=== PATIENT | male | born 1940 | race Caucasian/White ===

== ENCOUNTER 2018-12-07 00:34 | Day surgery (SDC) | payer MEDICARE, OTHER ==
[2018-12-04 10:45] LABS: PLATELET COUNT, AUTOMATED 244 K/uL (150-450)
--- NOTE | 2018-12-06 19:47 | HISTORY AND PHYSICAL ---
DATE OF ADMISSION: December 07, 2018 CHIEF COMPLAINT Elevated PSA with chronic urinary retention and bilateral hydronephrosis. HISTORY OF PRESENT ILLNESS Patient is a 78-year-old male who was referred to the Urology Clinic by Dr. Coronel of the [facility] in [place] in August for chronic urinary retention, requiring CIC. 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 He apparently has been on CIC for several months prior to him being evaluated here. The reason that prompted his urologic referral was he was noted to have bilateral hydronephrosis on a CT chest angiogram, but the patient was without significant symptoms. When seen in the Urology Clinic, his postvoid was greater than 500 mL. He had a creatinine of 1.3 and an elevated PSA of 4.8. The patient was continued on CIC. He had a followup renal ultrasound which continued to show some hydronephrosis. A cystoscopy was performed, which showed a 2+ trabeculated bladder and a large intravesical lobe extension on the prostate. Repeat ultrasound showed continued hydronephrosis with an enlarged prostate of approximately 90 cc volume. A Eason catheter was placed and a renal scan performed, which showed bilateral patulous systems with delayed drainage, consistent with delayed filling, not really with an obstructive system. A repeat PSA was performed and was up to 5.2. Given these findings, he is now being brought to the operating room for planned anesthetic cystoscopy with bilateral retrograde pyelograms, possible ureteroscopy with stent placement, as well as transrectal ultrasound biopsy of the prostate. PAST MEDICAL HISTORY 1. Hypertension. 2. Hypercholesterolemia. 3. Gastroesophageal reflux disease. 4. History of right subdural hematoma in July 2017. 5. Dementia. 6. COPD. 7. BPH with bilateral hydronephrosis as per HPI. 8. Secondary polycythemia. PAST SURGICAL HISTORY Right rotator cuff. CURRENT MEDICATIONS 1. Flomax. 2. Amlodipine. 3. Melatonin. ALLERGIES No known drug allergies. SOCIAL HISTORY Patient lives in [place], [place]. His primary caretakers are his cdwkbyy-no-owm and sister, Abner and Ping Mann, and his DPOA is his son, José Miguel Leal. He does report long tobacco use. REVIEW OF SYSTEMS Patient denies gross hematuria, flank pain, nausea, vomiting, fever, chills, bleeding disorder, or liver disease. PHYSICAL EXAMINATION GENERAL: Patient is a well-developed, elderly white male in no acute distress. HEENT: Normocephalic, atraumatic. CHEST: Clear to auscultation bilaterally. CARDIOVASCULAR: Regular rate and rhythm. ABDOMEN: Soft, nontender. No masses are palpated. BACK: Normal-appearing spine without CVAT. GENITOURINARY: Deferred to the OR. NEUROLOGIC: Nonfocal. EXTREMITIES: Without clubbing, cyanosis, or edema. IMPRESSION A 78-year-old white male with chronic urinary retention with bilateral hydronephrosis and enlarged prostate with elevated PSA. PLAN Will perform anesthetic cystoscopy, bilateral retrograde pyelograms, possible ureteroscopy and/or stent placement as indicated, followed by transrectal ultrasound and biopsy of the prostate. [facility]
[~2018-12-07] VITALS: Ht 170.2 cm; Wt 58.1 kg
[2018-12-07] VITALS (11 sets, daily range): BP systolic 100–131; BP diastolic 64–80
[~2018-12-07 00:34] MED LIST: ALBU8.5H IH; ASPI-1471 PO; ATOR40TA24 PO; BUDE10.2 INH; FINA5TAB67 PO; GUAI600T57 PO; IBUP800T37 PO; LOR5 PO; MELA5TAB3 PO; OXYC-865 PO; RAN150 PO; RANI-54 PO; SULF-198 PO; TAMS0.4C25 PO; TIOT4MIS5 INH
[2018-12-07] MEDS ORDERED: MIDAZOLAM 2 MG/2 ML VIAL IVP PRN (06:45)
[2018-12-07] MEDS ORDERED: NORMOSOL R SOLN(*) 1000 ML BAG 1,000 ML IV PRN (06:45)
[2018-12-07] MEDS ORDERED: FAMOTIDINE 20 MG TAB PO ONE (06:45)
[2018-12-07] MEDS ORDERED: LIDOCAINE/SOD BICARB 8.4% SYR ID ONE (06:45)
[2018-12-07] MEDS ORDERED: LEVOFLOXACIN/D5W*500 MG/100 ML 100 ML IVPB ONE (06:45)
[2018-12-07] MEDS ORDERED: IOPAMIDOL 20 ML VIAL IT ONE ×2 (07:18→07:41)
[2018-12-07] MEDS ORDERED: fentaNYL CITR 100 MCG/2 ML AMP ONE (07:23)
[2018-12-07] MEDS ORDERED: IOPAMIDOL 76% 50 ML INFUS BTL 0 ML ONE (07:25)
[2018-12-07] MEDS ORDERED: ONDANSETRON 4 MG/2 ML VIAL ONE (07:26)
[2018-12-07] MEDS ORDERED: DEXAMETHASONE SOD 4 MG/ML VIAL ONE (07:26)
[2018-12-07] MEDS ORDERED: LIDOCAINE MPF 1% 5 ML VIAL ONE (07:26)
[2018-12-07] MEDS ORDERED: PROPOFOL EMUL(*) 10MG/ML 20 ML 20 ML ONE (07:26)
[2018-12-07] MEDS ORDERED: LIDOCAINE 2% JELLY 5 ML TUBE ONE (07:34)
[2018-12-07] MEDS ORDERED: IOPAMIDOL-200 50 ML VIAL IS ONE ×2 (07:42→09:07)
[2018-12-07] MEDS ORDERED: GENTAMICIN 80 MG/2 ML VIAL ONE (07:59)
[2018-12-07] MEDS ORDERED: ePHEDrine 25 MG/5 ML DISP.SYR IVP ONE (08:12)
[2018-12-07] MEDS ORDERED: FUROSEMIDE 40 MG/4 ML VIAL ONE (08:14)
[2018-12-07] MEDS ORDERED: IOTHALAMATE MEGLU 172MG/ML BTL 250 ML IVPB ONE ×2 (08:19→08:20)
[2018-12-07] MEDS ORDERED: NS(*) 0.9% 100 ML BAG 100 ML ONE (08:26)
[2018-12-07] MEDS ORDERED: INDIGOTINDISULF SOD 40 MG/5 ML ONE (08:34)
[2018-12-07] MEDS ORDERED: LEVO-85 PO (09:38)
[2018-12-07] MEDS ORDERED: DOCU-416 PO (09:40)
[2018-12-07] MEDS ORDERED: NEOM1PAC11 TP (09:42)
--- NOTE | 2018-12-07 10:49 | RADIOLOGY IMAGING REPORT ---
FACILITY: [facility] PATIENT NAME: Ra Leal : 1940 MR: [id number] V: [id number] EXAM DATE: ORDERING PHYSICIAN: ARSH SNOWDEN TECHNOLOGIST: Location: [facility] Patient: Ra Leal : 1940 Visit/Account:[id number] Date of Sevice: 12/07/2018 Exam type: PROSTATE BIOPSY History: Elevated PSA Comparison: None. Findings: The prostate biopsy was performed by Dr. Snowden. Sonographic assistance was provided. Please see Dr Francisco Snowden's note for complete details IMPRESSION: 1. As above Report Dictated By: Candice Pearson MD at 12/07/2018 10:39 AM Report E-Signed By: Candice Pearson MD at 12/07/2018 10:39 AM WSN:[email or web address]
--- NOTE | 2018-12-07 11:00 | RADIOLOGY IMAGING REPORT ---
FACILITY: [facility] PATIENT NAME: Ra Leal : 1940 MR: [id number] V: [id number] EXAM DATE: ORDERING PHYSICIAN: ARSH SNOWDEN TECHNOLOGIST: Location: [facility] Patient: Ra Leal : 1940 Visit/Account:[id number] Date of Sevice: 12/07/2018 Exam type: RETROGRADE PYELOGRAM History: STONES Comparison: Renal ultrasound October 04, 2018. Findings: The fluoroscopy time was 0.43 minutes. The fluoroscopy dose was 21.34 mGray. 38 cm spot views over the abdomen and pelvis were submitted. Initial images demonstrate a cystogram with marked trabeculation of the bladder. There is severe ves icoureteral reflux on the left with severe left hydronephrosis and left hydroureter. The left ureter appears extremely ectatic with a mild narrowing at the left UPJ. There is grade 1 vesicoureteral re flux on the right Subsequent images demonstrate cystoscope in place with contrast injected into the r ight ureter. There is a mild right hydronephrosis and moderate right hydroureter. The right ureter appears extremely ectatic. IMPRESSION: 1. Severely trabeculated bladder Severe grade 5 vesicoureteral reflux on the left with a severe left hydronephrosis and left hydrouret er. There is also suggestion of mild narrowing at the left UPJ There is grade 1 vesicoureteral reflux on the right Mild right hydronephrosis and moderate right hydroureter following injection of contrast into the rig ht ureter Report Dictated By: Candice Pearson MD at 12/07/2018 10:41 AM Report E-Signed By: Candice Pearson MD at 12/07/2018 10:50 AM WSN:[email or web address]
--- NOTE | 2018-12-07 16:22 | OPERATIVE REPORT 1 ---
EVENT DATE: December 07, 2018 SURGEON: Shar Griffith MD ANESTHESIOLOGIST: Gustavo Peralta MD ANESTHESIA: General anesthetic. PREOPERATIVE DIAGNOSES 1. Chronic urinary retention. 2. Bilateral hydronephrosis. 3. Elevated PSA. POSTOPERATIVE DIAGNOSES 1. Chronic urinary retention. 2. Bilateral hydronephrosis. 3. Elevated PSA. PROCEDURES PERFORMED 1. Bladder irrigation with double antibiotic solution. 2. Static cystogram. 3. Rigid and flexible cystoscopy. 4. Right retrograde pyelogram. 5. Transrectal ultrasound of prostate. 6. Prostate needle biopsy transrectally times 13, sent in 12 containers. 7. Ultrasound guidance of prostate needle biopsy. ESTIMATED BLOOD LOSS 5 mL. INTRAVENOUS FLUIDS Crystalloids. DRAINS 16-Malawian Eason catheter. PATHOLOGY 13 biopsy cores sent in 12 containers, measured right, left, mid, base, apex, and mediolateral. FINDINGS 1. 3+ trabeculated bladder. 2. Extensive left intravesical prostatic protrusion. 3. Left vesicoureteral reflux. 4. Approximately 85 cc volume prostate. 5. Bilateral dilated upper tracts with no evidence of obstruction. COMPLICATIONS None. CONDITION Patient taken to recovery room awake, in stable condition. STATEMENT OF MEDICAL NECESSITY Patient is a 78-year-old male referred to the Urology Clinic by Dr. 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 The patient was also found to have an elevated PSA of approximately 4.5, which was repeated and was 5. He currently does CIC once a day. His workup in the office revealed a cystoscopic evaluation which revealed an intravesical protrusion of the prostate as well as a 3+ trabeculated bladder. He did have bilateral ureteronephrosis on ultrasound, which did not resolve after Eason catheter placement. DTPA renal scan with Lasix washout was performed with the Eason catheter in place, which was most consistent with patulous systems bilaterally and not significant obstruction. He is now being brought to the operating room for planned anesthetic cystoscopy and transrectal ultrasound biopsy of his prostate. DESCRIPTION OF PROCEDURE PERFORMED Patient was brought to the operating room. After general anesthetic was attained, he was placed in the dorsal lithotomy position and prepped and draped in the usual sterile manner. A 20-Malawian Eason catheter was placed and the balloon inflated. This was used to irrigate the patient's bladder with double antibiotic solution for 500 mL. Following this, his catheter was left in place, and a static cystogram was performed. Intermittent fluoroscopic imaging was obtained. The patient was noted to have a very irregular surfaced bladder with multiple small diverticula. He was also noted to have left vesicoureteral reflux at approximately 200 mL volume. His bladder was filled with a total of approximately 600 mL. He had reflux all the way up to the renal pelvis and calyceal system on the left side. None was noted on the right. On his drainage film, he was noted to have good drainage from the bladder and from the ureter on the left side. He did have some remaining contrast in the dilated calyceal system. At this point, anesthetic cystoscopy was performed with the 21-Malawian rigid sheath. Both the 30- and 70-degrees lenses were used. He had a normal- appearing pendulous, bulbar, and membranous urethra. However, upon entering his prostate, he was mainly obstructed on the left side. He had a large intravesical lobe on the left side protruding approximately 2 to 3 cm inside the bladder neck. There was no protrusion on the right side. The bladder was extremely trabeculated with multiple small diverticula and cellules. I could not easily identify the ureter on either side after multiple attempts and several minutes of investigation. Therefore, the rigid scope was removed, and the flexible cystoscope was then used. Again, I could not identify the orifices on either side. I was able to further elucidate the left vesicle extension of the prostate. It appeared to be more on the lateral aspect of the bladder neck with some extension anteriorly and posteriorly. There was no intravesical protrusion on the patient's right side. At this point, 10 mg of Lasix along with an ampule of indigo carmine were given. Approximately five minutes later, I was able to locate the right ureteral orifice, which was approximately 1.5 cm off the bladder neck next to what appeared to be a small Hutch diverticulum. It appeared to have good efflux of urine. The 8-Malawian cone-tipped catheter was then used to cannulate this orifice, and a retrograde pyelogram was performed, which revealed a dilated, tortuous ureter up to a mildly dilated pelvis. The calyceal system on this side was much sharper than the other side. After the catheter was removed, he did have drainage from this side both visually looking at the ureteral orifice and on the fluoroscopic imaging. I could never identify the ureteral orifice on the left even after the right was identified. Even though I could be fairly certain of the intertrigonal ridge and follow it to its expected location, I could not identify it. However, I was confident that this side was not obstructed and easily refluxed back and forth. There appeared to be the valve for his high-pressure bladder. I could not be sure exactly how close to this intravesical extension this ureteral orifice was at this time. At this point, the scope was removed, and then the ultrasound biopsy of the prostate was performed. First, a digital rectal exam was performed, which showed normal sphincter tone and empty rectal vault and no significant prostatic nodularity. The end-fire probe was introduced, and transrectal ultrasound imaging of the prostate was performed. Again, this large nodular left prostate was identified and seen to extend 3 cm into the bladder itself. The right side did not appear overly enlarged. The volume of the prostate was then calculated. First, I ejaculated just the volume of the prostate itself without this large intravesical lobe, and it appeared to be approximately 27 mL. The large intravesical lobe was also measured. It measured approximately 57 to give a total volume of approximately 85 cc volume prostate, which was congruent with his prior measurements from his CT scan. Following this, ultrasound guidance was then performed to aid in the prostate needle biopsy. A total of 13 biopsies were performed. There were two at the left apex and one at all the other areas. These were sent in 12 separate containers. The containers were marked left and right base, mid apex, and mediolateral. Following prostatic biopsy, the ultrasound probe was removed, and then a Eason catheter was placed sterilely with 10 mL in the balloon. The patient was awakened in the operating room and taken to the recovery area in stable condition. PLAN Will allow the patient to be discharged home today with his Eason catheter in place. Will see him in the Urology Clinic in approximately five days to review his pathology and discuss further treatment at that point. He is being discharged home on Colace and Levaquin for the next six days. DEANDRE
== END 2018-12-07 10:25 | disposition home or self-care (01) ==
LOC: OR 00:34
PROVIDERS: ATTEND Urology
DX: R33.9 Retention of urine, unspecified (principal); N13.30 Unspecified hydronephrosis; R97.20 Elevated prostate specific antigen [PSA]
CPT/HCPCS: 36415; 52005; 55700; 74420; 76942; 81001; 84153; 85025; 87077; 87088; 87186; 88305; 88344; A4338; A9270; J1100; J1580; J1940; J1956; J2001; J2405; J2704; J3010; J7050; Q9958; Q9966; 82040; 82247; 82310; 82374; 82435; 82565; 82947; 84075; 84132; 84155; 84295; 84450; 84460; 84520; Q9967